=== PATIENT | female | born 1940 | race Asian ===

== ENCOUNTER 2016-05-02 10:42 | Emergency (ER) | payer OTHER ==
[~2016-05-02] VITALS: Ht 154.9 cm; Wt 70.3 kg
--- NOTE | 2016-05-02 10:42 | NUR ---
Pt placed in bed 6 by EMS. Daughter at bedside.
[2016-05-02] MEDS ORDERED: NACL 0.9% 500 ML IV ONE (10:50)
--- NOTE | 2016-05-02 10:50 | NUR ---
75/F lefty from home for evaluation of a possible syncopal episode this morning. Daughter states "She was sitting down, and was complaining of shortness of breath and then she shaking and was unconcious. She was unconcious." The daughter states she has hx of Alzhemiers but at this time the patient is AOX4. Pt is micronesian speaking only but the daughter is at bedside for tranlsation. Pt denies pain. The patient states "I feel better now.' per the daughter translation. Pt placed into a gown, placed on statistical analyst, pulse oximetry and blood pressure monitoring. VSS at this time. Patient is awake and interacting appropriately. No visible signs of distress noted. Addendum: 05/02/16 at 1202 by [facility] Patient is Turkmen Mandarin speaking not Belarusian speaking.
[2016-05-02 10:57] VITALS: BP 121/76
--- NOTE | 2016-05-02 11:10 | NUR ---
Phleb at bedside for blood draw.
--- NOTE | 2016-05-02 11:47 | NUR ---
Pt back from CT. Daughter at bedside. VSS. No visible signs of distress noted.
--- NOTE | 2016-05-02 13:03 | NUR ---
Patient appears to be resting comfortably in bed. Vital Signs within normal limits. Respirations even and unlabored.
[2016-05-02 13:26] VITALS: BP 130/89
--- NOTE | 2016-05-02 13:28 | NUR ---
Chart checked and completed. The patient's care was reviewed and supervised by Yonatan Brar RN.
--- NOTE | 2016-05-02 13:28 | NUR ---
Patient discharged with v/s stable. Written and verbal after care instructions given and explained. Patient verbalized understanding. Ambulatory with steady gait. All questions addressed prior to discharge. Advised to follow up with PMD.
== END 2016-05-02 14:38 | disposition home or self-care (01) ==
LOC: MED 10:42
DX: R55 Syncope and collapse (principal); I10 Essential (primary) hypertension; R06.02 Shortness of breath; R32 Unspecified urinary incontinence; Z86.73 Personal history of transient ischemic attack (TIA), and cerebral infarction without residual deficits
CPT/HCPCS: 36415; 70450; 71010; 80053; 82553; 82948; 83880; 84484; 85025; 85379; 85610; 85730; 93005; 96360; 99285; J7030; Q0092

== ENCOUNTER 2016-12-30 10:48 | Inpatient (IN) | payer OTHER ==
[~2016-12-30] VITALS: Ht 157.5 cm; Wt 58.5 kg
[2016-12-30 10:53] VITALS: BP 131/93
--- NOTE | 2016-12-30 10:59 | NUR ---
Patient BIBA to be 4 at this time.
--- NOTE | 2016-12-30 10:59 | NUR ---
Patient being evaluated by physician at bedside.
--- NOTE | 2016-12-30 11:05 | NUR ---
PATIENT PRESENTS TO ED WITH brought in by ems s/p mechanical fall at the [facility] parking lot c/o right hip / right shoulder pain/ right knee pain---no ko , no abrasions or deformities noted----pain upon movement no shortening or rotation of any leg---; DENIES N/V/D; SKIN IS PINK/WARM/DRY; AAOX4; LUNGS CLEAR BL; HR EVEN AND REGULAR; PT DENIES ANY FEVER, CP, SOB, OR COUGH AT THIS TIME; PATIENT STATES PAIN OF 10/10 AT THIS TIME; VSS; PATIENT POSITIONED FOR COMFORT; HOB ELEVATED; BEDRAILS UP X2; BED DOWN. ER MD MADE AWARE OF PT STATUS.
[2016-12-30] MEDS ORDERED: fentaNYL 0.05 MG/ML VIAL IM ONE (11:15)
--- NOTE | 2016-12-30 11:25 | NUR ---
WASTED 25MCG FENTANYL
--- NOTE | 2016-12-30 11:27 | NUR ---
PT TAKEN OFF THE UNIT VIA [facility] FOR XRAY BY [facility]
--- NOTE | 2016-12-30 12:35 | NUR ---
PATIENT BACK FROM CT AT THIS TIME.
[2016-12-30 13:15] LABS: BASOPHILS # (AUTO) 0.1 K/uL (0.00-0.22); BASOPHILS % (AUTO) 1.2 % (0.0-2.0); EOSINOPHILS # (AUTO) 0.1 K/uL (0-0.4); HEMATOCRIT 37.3 % (36-48); HEMOGLOBIN 12.7 g/dL (12.0-16.0); LYMPHOCYTES # (AUTO) 1.5 K/uL (2.5-16.5); LYMPHOCYTES % (AUTO) 19.3 % (20.5-51.1); MEAN CORPUSCULAR HEMOGLOBIN 32 pg (27-31); MEAN CORPUSCULAR HGB CONC 34 g/dL (33-37); MEAN CORPUSCULAR VOLUME 95 fL (80-94); MONOCYTES # (AUTO) 0.3 K/uL (0.8-1.0); MONOCYTES % (AUTO) 4.5 % (1.7-9.3); NEUTROPHILS # (AUTO) 5.7 K/uL (1.8-7.7); PLATELET COUNT (AUTO) 264 K/uL (140-450); RED BLOOD CELL COUNT(AUTO) 3.94 MIL/uL (4.20-5.40); RED CELL DISTRIBUTION WIDTH 11.7 % (11.6-13.7); WHITE BLOOD COUNT (AUTO) 7.7 K/uL (4.8-10.8)
[2016-12-30 13:29] LABS: ANION GAP 9.6 (8-16); CARBON DIOXIDE 28.7 mmol/L (21-32); CHLORIDE 104 mmol/L (98-107); CREATININE 0.7 mg/dL (0.6-1.3); GLUCOSE 95 mg/dL (74-106); POTASSIUM 3.3 mmol/L (3.5-5.1); SODIUM SERUM 139 mmol/L (136-145); UREA NITROGEN, BLOOD 16 mg/dL (7-18)
[2016-12-30 13:31] LABS: PROTHROMBIN TIME 10.4 secs (10.8-13.4)
[2016-12-30] MEDS ORDERED: LORA-476 PO (13:34)
[2016-12-30] MEDS ORDERED: AMLO10TA PO (13:34)
[2016-12-30] MEDS ORDERED: ESCI10TA PO (13:34)
[2016-12-30] MEDS ORDERED: SIMV20TA1 PO (13:34)
[2016-12-30 13:36] LABS: ALBUMIN 3.6 g/dL (3.4-5.0); ASPARTATE AMINOTRANSFERASE 21 U/L (15-37); TOTAL BILIRUBIN 0.6 mg/dL (0.0-1.0)
[2016-12-30] MEDS ORDERED: ONDANSETRON 4 MG/2 ML VIAL IVP PRN (13:50)
[2016-12-30] MEDS ORDERED: MORPHINE SULFATE 2 MG/ML SYR IVP PRN (13:50)
[2016-12-30] MEDS ORDERED: ACETAMINOPHEN 325 MG TAB PO PRN (13:50)
--- NOTE | 2016-12-30 14:05 | NUR ---
RN UNAVAILABLE FOR REPORT AT THIS TIME
--- NOTE | 2016-12-30 14:19 | NUR ---
Patient will be admitted to care of DR TURCIOS. Admited to M/S. Will go to room 110B. Belongings list completed. Report to EVERT ISAAC.
--- NOTE | 2016-12-30 14:25 | NUR ---
PATIENT ARRIVED ON UNIT WITH 2 ER NURSES ON A GURNEY. PATIENT IS MANDARIN SPEAKING ONLY. AAOX3 WITH TIMES OF CONFUSION. IV ON LEFT AC #22G SALINE LOCK. PT HAS RIGHT HIP FRACTURE. TENDERNESS ON RIGHT SHOULDER AND ARM. SKIN INTACT. DAUGHTER AT BEDSIDE. DENIES PAIN AT THIS TIME. DAUGHTER BROUGHT FOOD FOR PATIENT TO EAT. VITAL SIGNS WITHIN NORMAL LIMITS. WILL CONTINUE WITH ADMISSION PROCESS.
[2016-12-30 15:00] VITALS: BP 147/91
[2016-12-30] MEDS ORDERED: POTASSIUM CHLORIDE 10 MEQ TABER PO SCH (16:00)
[2016-12-30] MEDS: NACL 0.9% 1,000 ML IV SCH (17:36)
--- NOTE | 2016-12-30 17:40 | NUR ---
NS ADMINISTERED PER ORDER AT 80 ML/HR. ADMINISTERED KDUR 40 MEQ FOR LOW K LEVEL. PATIENT TOLERATED WELL. WILL CONTINUE TO MONITOR.
--- NOTE | 2016-12-30 19:21 | NUR ---
ENDORSED PATIENT TO EP TECHNOLOGIST NURSE AT BEDSIDE FOR CONTINUITY OF CARE. DAUGHTER AT BEDSIDE. PT IN STABLE CONDITION.
--- NOTE | 2016-12-30 19:30 | NUR ---
RECEIVED PT FROM AM SHIFT. RESIDENT IS ALERT ORIENTED X3, PT IS AWAKE AND START EATING DINNER WITH HELP FROM HER DAUGHTER. PT MANDARIN SPEAKING. IV ON L AC NO 22 GAUGE WITH IV FLUID NS AT 80 CC/HR RUNNING WELL. NO C/O PAIN OR DISCOMFORT AT THIS TIME.
--- NOTE | 2016-12-30 20:00 | NUR ---
DR. FELIZ,ANESTHESIOLOGIST CALLED AND INFORMED ABOUT PT SURGERY TOMORROW AFTERNOON. WITH ORDER TO HAVE ECHO TONIGHT.
--- NOTE | 2016-12-30 20:15 | NUR ---
PAGED DR. TURCIOS ,DR GÓMEZ DYE WEIGHER . CALLED BACK AND MADE AWARE OF THE NEED TO HAVE A PROJECT MANAGEMENT SPECIALIST TO READ THE ECHOCARDIOGRAM. WITH ORDER FOR DR. RENEE TO READ.
--- NOTE | 2016-12-30 20:35 | NUR ---
DR. BORJAS WAS PAGED. AWARE OF THE SURGERY TOMORROW. WITH ORDER TO HOLD THE LOVENOX AND TO GET CONSENT FOR RIGHT HIP PINNING. SURGERY WILL BE BETWEEN 12PM -1 PM.
[2016-12-30 21:21] VITALS: BP 151/95
--- NOTE | 2016-12-30 21:40 | NUR ---
PAGED DR. GÓMEZ, CALLED BACK WITH ORDER . OK TO INSERT MC CATHETER IN.
--- NOTE | 2016-12-30 22:00 | NUR ---
PT IS SLEEPING AT THIS TIME AFTER PAIN MED WAS GIVEN. WILL CONTINUE TO MONITOR.
--- NOTE | 2016-12-30 23:10 | NUR ---
FELL CUTTER TO DO ECHOCARDIOGRAM HER. USED THE BLUE PHONE TO TRANSLATE . SELECTOR PACKER KEVON ID#[id number] /PT UNDERSTOOD THE TEST FOR ECHO AND CONSENTED ON DOING THIS BUT WHEN TIME TO EXPLAIN ABOUT THE MC CATHETER INSERTION , PT REFUSED TO LISTEN ANYMORE.
[2016-12-30 23:30] VITALS: BP 152/101
--- NOTE | 2016-12-30 23:53 | NUR ---
ECHO COMPLETE. NOTIFIED NURSE TO PAGE DR. RENEE ON STAT READING FOR PRE-OP. CRITICAL FINDING SEEN ON ECHO. CANNOT GIVE PRELIMINARY REPORT.
--- NOTE | 2016-12-31 00:10 | NUR ---
PT START NPO FOR PRE SURGERY.
--- NOTE | 2016-12-31 00:30 | NUR ---
PT STILL REFUSED TO HAVE THE MC CATHETER TO BE INSERTED. WILL TRY LATER AGAIN.
--- NOTE | 2016-12-31 01:03 | NUR ---
PAGED DR. RENEE FOR THE STAT ECHO THAT WAS DONE AND THE CONCERN FOR POSS CRITICAL RESULT PER TELEMEDICINE PHYSICIAN BIENVENIDO. WILL WAIT FOR CALL BACK.
--- NOTE | 2016-12-31 01:06 | NUR ---
DR. RENEE CALLED BACK AND MADE AWARE OF THE STAT ECHO THAT WAS DONE FOR PRE OP , HE SAID HE WILL COME EARLY IN THE MORNING TO HAVE IT READ.
[2016-12-31] MEDS: NACL 0.9% 1,000 ML IV SCH ×3 (02:20→16:30)
--- NOTE | 2016-12-31 03:00 | NUR ---
MADE ROUNDS. SLEEPING WELL. NO S/S OF ANY DISCOMFORT NOR PAIN NOTED.
[2016-12-31 05:24] LABS: BASOPHILS # (AUTO) 0.1 K/uL (0.00-0.22); BASOPHILS % (AUTO) 1.6 % (0.0-2.0); EOSINOPHILS # (AUTO) 0.1 K/uL (0-0.4); EOSINOPHILS % (AUTO) 1.5 % (0.0-4.0); HEMATOCRIT 35.7 % (36-48); HEMOGLOBIN 12.2 g/dL (12.0-16.0); LYMPHOCYTES # (AUTO) 1.3 K/uL (2.5-16.5); LYMPHOCYTES % (AUTO) 17.8 % (20.5-51.1); MEAN CORPUSCULAR HEMOGLOBIN 32 pg (27-31); MEAN CORPUSCULAR HGB CONC 34 g/dL (33-37); MEAN CORPUSCULAR VOLUME 94 fL (80-94); MONOCYTES # (AUTO) 0.6 K/uL (0.8-1.0); MONOCYTES % (AUTO) 8.8 % (1.7-9.3); NEUTROPHILS # (AUTO) 5.1 K/uL (1.8-7.7); NEUTROPHILS % (AUTO) 70.3 % (42.2-75.2); PLATELET COUNT (AUTO) 246 K/uL (140-450); RED BLOOD CELL COUNT(AUTO) 3.79 MIL/uL (4.20-5.40); RED CELL DISTRIBUTION WIDTH 11.9 % (11.6-13.7); WHITE BLOOD COUNT (AUTO) 7.2 K/uL (4.8-10.8)
[2016-12-31 05:34] LABS: ANION GAP 10.3 (8-16); CARBON DIOXIDE 24.1 mmol/L (21-32); CHLORIDE 107 mmol/L (98-107); CREATININE 0.7 mg/dL (0.6-1.3); GLUCOSE 106 mg/dL (74-106); POTASSIUM 3.4 mmol/L (3.5-5.1); SODIUM SERUM 138 mmol/L (136-145); UREA NITROGEN, BLOOD 11 mg/dL (7-18)
--- NOTE | 2016-12-31 06:30 | NUR ---
CXR DONE AT BEDSIDE.
--- NOTE | 2016-12-31 07:10 | NUR ---
RECEIVED PT REPORT AT BEDSIDE. NO S/S OF DISTRESS NOTED. PT DENIES PAIN AT THIS TIME. IV NOTED ON THE LEFT ARM, NO INFILTRATION OR SWELLING. BED LOWERED, HOB ELEVATED TO 30 DEGREE. CALL LIGHT IS WITHIN REACH.
--- NOTE | 2016-12-31 07:25 | NUR ---
EKG ALSO DONE THIS AM AT BEDSIDE.
--- NOTE | 2016-12-31 07:30 | NUR ---
ABLE TO INSERT MC CATHETER ORDERED AFTER EXPLAINED TO PT BY EVERT MATHIS ORIENTEE . TOLERATED PROCEDURE WELL.
--- NOTE | 2016-12-31 07:35 | NUR ---
KEPT NPO, ENDORSED PT IN STABLE CONDITION AND TO HOLD LOVENOX TO AM NURSE.
--- NOTE | 2016-12-31 08:08 | NUR ---
PATIENT HAS BEEN SCREENED AND CATEGORIZED MODERATE NUTRITION RISK. PATIENT WILL BE SEEN WITHIN 3-5 DAYS OF ADMISSION. 01/02/17-01/04/[address]
--- NOTE | 2016-12-31 08:30 | NUR ---
PT C/O URINATING SENSATION. MC CATH IS ALREADY IN PLACE. URINE IS CLEAR YELLOW. EDUCATED PT NOT TO GET OUT OF BED OR USE THE RESTROOM. PT VERBALIZED UNDERSTANDING. BED ALARM ON.
[2016-12-31] MEDS ORDERED: ENOXAPARIN 40 MG/0.4 ML SYR SUBQ SCH (09:00)
[2016-12-31 09:01] VITALS: BP 157/103
[2016-12-31] MEDS ORDERED: LORazepam 1 MG TAB PO PRN (09:20)
[2016-12-31] MEDS: LORazepam 2 MG/ML VIAL IVP PRN ×3 (09:59→22:46)
[2016-12-31] MEDS ORDERED: amLODIPine 5 MG TAB PO SCH (10:00)
[2016-12-31] MEDS ORDERED: ESCITALOPRAM 20 MG TAB PO SCH (10:00)
[2016-12-31] MEDS: hydrALAZINE 20 MG/ML VIAL IVP PRN ×2 (10:06→16:15)
[2016-12-31] MEDS ORDERED: HALOPERIDOL IM 5 MG/ML VIAL IM PRN (10:40)
--- NOTE | 2016-12-31 10:40 | NUR ---
PT AGITATED, TRYING TO PULL OUT THE MC CATH AND IV LINE. PT IS A FALL RISK WITH HIP FX. PT TRIES TO GET OUT OF BED. ATIVAN WAS GIVEN. PT STILL RESTLESS, SHOUTING, AND HITTING WHEN CALMED DOWN BY STAFF. NON-BEHAVIORAL RESTRAINTS APPLIED TO BILATERAL WRISTS. ORDER OBTAINED. WILL CONTINUE TO MONITOR.
--- NOTE | 2016-12-31 11:33 | NUR ---
FAXED INITIAL REVIEW TO [facility] [phone] PHONE SAULO [phone] SPOKE WITH SAULO FROM [facility]. IF PATIENT NEEDS SNF, TRY [facility] OR [facility].
--- NOTE | 2016-12-31 11:54 | NUR ---
SENT INQUIRY TO [facility]. PER OTILIO AT 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
[2016-12-31] MEDS ORDERED: BACITRACIN 50000 UNITS/1 VIAL ONE (12:54)
--- NOTE | 2016-12-31 13:07 | NUR ---
PATIENT LEFT THE UNIT FOR SURGERY
[2016-12-31] MEDS ORDERED: SEVOFLURANE 250 ML BTL INH ONE (13:20)
[2016-12-31] MEDS ORDERED: PROPOFOL 200 MG/20 ML VIAL IV ONE (13:20)
--- NOTE | 2016-12-31 13:30 | NUR ---
OTILIO FROM [facility] CALL AND SAID THEY CAN ACCEPT THE PATIENT UPON DISCHARG.
[2016-12-31] MEDS ORDERED: MIDAZOLAM 2 MG/2 ML VIAL ONE (13:42)
[2016-12-31] MEDS ORDERED: fentaNYL 0.05 MG/ML VIAL ONE (13:42)
[2016-12-31] MEDS ORDERED: MEPERIDINE 50 MG/ML SYR ONE (13:42)
[2016-12-31] MEDS ORDERED: ceFAZolin 1,000 MG VIAL ONE ×2 (14:00→14:44)
[2016-12-31] MEDS ORDERED: ONDANSETRON 4 MG/2 ML VIAL IVP PRN (14:10)
[2016-12-31] MEDS ORDERED: MEPERIDINE 25 MG/ML SYR IVP PRN (14:10)
[2016-12-31] MEDS ORDERED: diphenhydrAMINE 50 MG/ML VIAL IVP PRN (14:10)
[2016-12-31] MEDS ORDERED: HYDROmorphone 1 MG/ML AMP IVP PRN (14:10)
[2016-12-31] MEDS ORDERED: BUPIVACAINE-MPF 0.5% 30 ML VIAL INJ ONE (14:29)
--- NOTE | 2016-12-31 15:00 | NUR ---
SCHEDULED ANCEF NOT ADMINISTERED. PATIENT RECEIVED DOSE IN OPERATING ROOM
--- NOTE | 2016-12-31 15:30 | NUR ---
PT RETURNED TO THE UNIT, S/P ORIF OF THE RIGHT HIP. PT IS DROWSY BUT RESPONSIVE. DRESSING NOTED ON THE RIGHT HIP. DRESSING IS CLEAN, DRY AND INTACT. TEMP 97.4, BP 156/109, HR 74, O2 SAT 93% ON RM AIR.
--- NOTE | 2016-12-31 15:58 | NUR ---
I CALLED THE DAUGHTER AND INFORMED HER THAT HER MOTHER HAS BEEN ACCEPTED AT [facility].
[2016-12-31 16:10] VITALS: BP 154/109
--- NOTE | 2016-12-31 17:00 | NUR ---
PT WAS AGITATED AND C/O OF URINATING SENSATION. EXPLAINED TO PT ABOUT MC CATH. BLADDER SCAN WAS DONE, 0 ML OF URINE RESIDUAL NOTED. MC CATH HAS GOOD OUTPUT, DRAINING CLEAR ORANGE URINE.
--- NOTE | 2016-12-31 19:15 | NUR ---
PT IS OFF RESTRAINS. PT IS CALMLY SLEEPING. RR IS 20.
--- NOTE | 2016-12-31 19:30 | NUR ---
ENDORSED PT TO THE OPTICAL LENS MANUFACTURING TECH. PT IS ASLEEP, SHOWS NO S/S OF DISTRESS.
--- NOTE | 2016-12-31 19:31 | NUR ---
RECEIVED REPORT FROM AM NURSE. PT RESTING IN BED, AOX2, SLEEPING COMFORTABLY BUT AROUSABLE TO NAME, NO S/S OF ACUTE DISTRESS. SOFT WRIST RESTRAINTS OFF AT THIS TIME, WILL MONITOR PT. MC CATH IN PLACE, DRAINING CLEAR KARON URINE. TRAPEZE NOT SET UP YET, WILL FOLLOW UP. DISCUSSED AND REVIEWED PLAN OF CARE WITH PT, WILL CONTINUE TO REINFORCE. BOTH IV ACCESS ASYMPTOMATIC, PATENT AND INTACT. LEFT AC IV ACCESS SALINE LOCKED, RIGHT HAND IV ACCESS, IVF INFUSING WELL. ALL NEEDS MET. SAFETY MEASURES ENSURED. CALL LIGHT WITHIN REACH. WILL CONTINUE TO MONITOR.
[2016-12-31 20:00] VITALS: BP 149/99
--- NOTE | 2016-12-31 20:50 | NUR ---
ADMINISTERED DUE MEDS WITH EDUCATION. WILL CONTINUE TO REINFORCE TEACHING. ALL NEEDS MET. IVPB INFUSING WELL. SAFETY MEASURES ENSURED. CALL LIGHT WITHIN REACH. WILL CONTINUE TO MONITOR.
--- NOTE | 2016-12-31 22:00 | NUR ---
HEARD BED ALARM FROM [facility], CHECKED ON PT. PT IS RESTLESS, TRYING TO GET UP OUT OF BED. PT HELPED BACK TO BED, CALLED CONTACT CENTER REP TO BEDSIDE TO STAY WITH PT AT THIS TIME. WILL MONITOR PT.
--- NOTE | 2016-12-31 22:17 | NUR ---
NOTIFIED BY TESTER OPERATOR HELPER THAT PT IS RESTLESS AND AGITATED, PT IS YELLING, TRYING TO REMOVE PT'S MC CATH AND IV CATH. PT IS UNCOOPERATIVE DESPITE TESTER OPERATOR HELPER AT BEDSIDE AND EDUCATION. SOFT WRIST RESTRAINTS ENSURED AT THIS TIME, WILL CONTINUE TO MONITOR PT. ALL NEEDS MET. IVF INFUSING WELL. SAFETY MEASURES ENSURED. CALL LIGHT WITHIN REACH. WILL CONTINUE TO MONITOR.
--- NOTE | 2016-12-31 22:46 | NUR ---
PT STILL RESTLESS AND AGITATED, TRYING TO PULL MC CATH, DESPITE EDUCATION AND PRODUCTION CONTROL CLERK AT BEDSIDE. ADMINISTERED ATIVAN IVP PRN ORDERED WITH EDUCATION. ALL NEEDS MET. IVF INFUSING WELL. SAFETY MEASURES ENSURED. CALL LIGHT WITHIN REACH. WILL CONTINUE TO MONITOR.
[2017-01-01] VITALS: BP 140/95
[2017-01-01] MEDS: NACL 0.9% 1,000 ML IV SCH ×4 (00:06→22:10)
--- NOTE | 2017-01-01 00:10 | NUR ---
PT SLEEPING COMFORTABLY, NO S/S OF ACUTE DISTRESS. SOFT WRIST RESTRAINTS REMOVED AT THIS TIME. ALL NEEDS MET. IVF INFUSING WELL. SAFETY MEASURES ENSURED. CALL LIGHT WITHIN REACH. WILL CONTINUE TO MONITOR.
--- NOTE | 2017-01-01 03:45 | NUR ---
CHECKED ON PT, NOTED PT IV CATH AT BEDSIDE, IV CANNULA INTACT. PT IS INCREASINGLY BECOMING RESTLESS AND AGITATED, PT REORIENTED, WILL CONTINUE TO REINFORCE. PT PUT BACK ON SOFT WRIST RESTRAINTS. USED BUSHER HELPER PHONE TO TALK TO PT. PT IS AOX2, CONFUSED AT THIS TIME, STATING THAT "SHE NEEDS TO COOK," AND INSISTING THAT SHE IS "IN [facility], IN MY HOME." ALL NEEDS MET. SAFETY MEASURES ENSURED. CALL LIGHT WITHIN REACH. WILL CONTINUE TO MONITOR.
[2017-01-01] MEDS: LORazepam 2 MG/ML VIAL IVP PRN ×2 (04:21→13:40)
--- NOTE | 2017-01-01 04:25 | NUR ---
HEARD BED ALARM FROM [employer], PT IS SITTING AT BEDSIDE, TRYING TO GET OUT OF BED, SOFT WRIST RESTRAINTS NOTED LOOSE. ASSISTED PT BACK TO BED. NOTED THAT PT'S DRESSING TO RIGHT HIP IS LOOSE, MINIMAL DRY RED DRAINAGE NOTED. DRESSING CHANGED, INCISION SITE WITH 10 ANNE MARIE, APPROXIMATED WELL, PINK SURROUNDING TISSUE, BRUISING NOTED. INCISION SITE CLEANSED WITH NS AND GAUZE, COVERED WITH ADAPTIC, 4X4 GAUZE AND WRAPPED WITH KERLIX. ALL NEEDS MET. SOFT RESTRAINTS ENSURED. CALL LIGHT WITHIN REACH. WILL CONTINUE TO MONITOR. Addendum: 01/01/17 at 0548 by Jai Corley RN NEW IV TO RIGHT AC 22G INSERTED BY CHARGE NURSE. PT ABLE TO TOLERATE WELL. IVF INFUSING WELL
--- NOTE | 2017-01-01 04:39 | NUR ---
PT STILL RESTLESS AND AGITATED DESPITE MONITORING AND EDUCATION, ADMINISTERED ATIVAN IVP PRN ORDERED WITH EDUCATION. WILL REINFORCE TEACHING. ADMINISTERED DUE MED ANCEF IVPB WITH EDUCATION. PT IN BED, IVPB INFUSING WELL, SOFT RESTRAINTS MAINTAINED, SAFETY MEASURES ENSURED. CALL LIGHT WITHIN REACH. WILL CONTINUE TO MONITOR.
--- NOTE | 2017-01-01 05:10 | NUR ---
PT SLEEPING COMFORATBLY. NO S/S OF ACUTE DISTRESS. ALL NEEDS MET. IVF INFUSING WELL. SAFETY MEASURES ENSURED. CALL LIGHT WITHIN REACH. WILL CONTINUE TO MONITOR.
[2017-01-01] MEDS: SIMVASTATIN 20 MG TAB PO SCH (06:30)
--- NOTE | 2017-01-01 07:06 | NUR ---
PT REFUSED DUE MED SIMVASTATIN PO DESPITE EDUCATION, SHAKING HEAD NO AND REFUSING TO TAKE MED. WILL ENDORSE TO AM NURSE.
--- NOTE | 2017-01-01 07:07 | NUR ---
RECEIVED PT FROM OFFICE MACHINE EMBOSSOGRAPH OPERATOR NURSE AT BEDSIDE. PT IS A&OX2. PT HAS IV ON R AC 22 G RUNNING NS@100. PT HAS SOFT WRIST RESTRAINTS ON, TRYING TO REMOVE THE MC CATH AT THIS TIME. MC CATH IS DRAINING DARK YELLOW URINE. REORIENTED PT. RELEASED THE RESTRAINTS TO CHECK THE SKIN. SKIN INTACT. PT IS S/P R HIP SURGERY, DSG INTACT AND CLEAN AND DRY. BED ALARM ON. CALL LIGHT WITHIN REACH. WILL CONTINUE TO MONITOR.
[2017-01-01 08:00] VITALS: BP 168/117
[2017-01-01] MEDS ORDERED: INFLUENZA VIRUS VACCINE QUAD 0.5 ML SYR IMVAC SCH (08:00)
[2017-01-01] MEDS ORDERED: PNEUMOCOCCAL VACCINE 23 MCG/0.5 ML VIAL IMVAC SCH (08:00)
--- NOTE | 2017-01-01 08:50 | NUR ---
SPOKE TO DR. TURCIOS REGARDING PT'S RESTRAINT ORDER NEEDING RENEWAL. STATED OKAY TO RENEW.
[2017-01-01] MEDS: ESCITALOPRAM 20 MG TAB PO SCH (08:58)
[2017-01-01] MEDS: amLODIPine 5 MG TAB PO SCH (08:58)
--- NOTE | 2017-01-01 09:00 | NUR ---
DAUGHTER FED PT HER BREAKFAST. TOLERATED WELL. CALL LIGHT WITHIN REACH. WILL CONTINUE TO MONITOR.
--- NOTE | 2017-01-01 11:45 | NUR ---
FED PT LUNCH. PT TOLERATED WELL. CALL LIGHT WITHIN REACH. WILL CONTINUE TO MONITOR.
[2017-01-01] MEDS: HYDROcodone/APAP 5/325 MG 1 TAB TAB PO PRN ×2 (12:07→23:12)
[2017-01-01 12:15] LABS: BASOPHILS # (AUTO) 0.1 K/uL (0.00-0.22); BASOPHILS % (AUTO) 1.3 % (0.0-2.0); EOSINOPHILS # (AUTO) 0.1 K/uL (0-0.4); EOSINOPHILS % (AUTO) 0.9 % (0.0-4.0); HEMATOCRIT 34.6 % (36-48); HEMOGLOBIN 11.5 g/dL (12.0-16.0); LYMPHOCYTES # (AUTO) 1.2 K/uL (2.5-16.5); LYMPHOCYTES % (AUTO) 14.1 % (20.5-51.1); MEAN CORPUSCULAR HEMOGLOBIN 31 pg (27-31); MEAN CORPUSCULAR HGB CONC 33 g/dL (33-37); MEAN CORPUSCULAR VOLUME 94 fL (80-94); MONOCYTES # (AUTO) 0.9 K/uL (0.8-1.0); MONOCYTES % (AUTO) 9.9 % (1.7-9.3); NEUTROPHILS # (AUTO) 6.3 K/uL (1.8-7.7); NEUTROPHILS % (AUTO) 73.8 % (42.2-75.2); PLATELET COUNT (AUTO) 234 K/uL (140-450); RED BLOOD CELL COUNT(AUTO) 3.67 MIL/uL (4.20-5.40); RED CELL DISTRIBUTION WIDTH 11.9 % (11.6-13.7); WHITE BLOOD COUNT (AUTO) 8.6 K/uL (4.8-10.8)
--- NOTE | 2017-01-01 12:30 | NUR ---
PT TRIED TO GET UP AND GET OUT OF HER SOFT WRIST RESTRAINTS. REDIRECTED PT BACK TO BED. CALL LIGHT WITHIN REACH. WILL CONTINUE TO MONITOR.
[2017-01-01 13:05] LABS: ANION GAP 11.9 (8-16); CARBON DIOXIDE 24.2 mmol/L (21-32); CHLORIDE 103 mmol/L (98-107); CREATININE 0.6 mg/dL (0.6-1.3); GLUCOSE 111 mg/dL (74-106); POTASSIUM 3.1 mmol/L (3.5-5.1); SODIUM SERUM 136 mmol/L (136-145); UREA NITROGEN, BLOOD 9 mg/dL (7-18)
--- NOTE | 2017-01-01 14:49 | NUR ---
SPOKE TO DR. TURCIOS REGARDING PT'S POTASSIUM 3.1. GAVE ORDER OF PO 40 MEQ OF POTASSIUM ONE DOSE. CALL LIGHT WITHIN REACH. WILL CONTINUE TO MONITOR.
[2017-01-01] MEDS ORDERED: POTASSIUM CHLORIDE 10 MEQ TABER PO SCH (14:57)
[2017-01-01 16:00] VITALS: BP 120/83
--- NOTE | 2017-01-01 16:00 | NUR ---
VS STABLE. CALL LIGHT WITHIN REACH. WILL CONTINUE TO MONITOR.
--- NOTE | 2017-01-01 17:45 | NUR ---
PT FINISHED 25% OF DINNER. STATED SHE IS FULL AND WILL EAT LATER. TOLERATED WELL. CALL LIGHT WITHIN REACH. WILL CONTINUE TO MONITOR.
--- NOTE | 2017-01-01 19:03 | NUR ---
ENDORSED CARE OF PT TO MAREK RN AT BEDSIDE. PT IN STABLE CONDITION.
--- NOTE | 2017-01-01 19:10 | NUR ---
RECEIVED REPORT FROM AM NURSE. PT RESTING IN BED, AOX2, SLEEPING COMFORTABLY BUT AROUSABLE TO NAME, NO S/S OF ACUTE DISTRESS. SOFT WRIST RESTRAINTS OFF AT THIS TIME, WILL MONITOR PT. MC CATH IN PLACE. TRAPEZE IN PLACE. SCDs ENSURED. DRESSING TO RIGHT HIP CLEAN DRY AND INTACT. DISCUSSED AND REVIEWED PLAN OF CARE WITH PT, WILL CONTINUE TO REINFORCE. IV ACCESS ASYMPTOMATIC, PATENT AND INTACT. IVF INFUSING WELL. ALL NEEDS MET. SAFETY MEASURES ENSURED. CALL LIGHT WITHIN REACH. WILL CONTINUE TO MONITOR.
[2017-01-01 20:00] VITALS: BP 162/112
[2017-01-01] MEDS: hydrALAZINE 20 MG/ML VIAL IVP PRN (20:52)
--- NOTE | 2017-01-01 20:55 | NUR ---
PT SLEEPING COMFORTABLY, AROUSABLE TO NAME. ADMINISTERED DUE MED HEPARIN SUBQ WITH EDUCATION, WILL CONTINUE WITH CONSTANT REINFORCEMENT. BP 162/112, HR 96, ADMINISTERED APRESOLINE IVP PRN ORDERED, WILL MONITOR PT AND REASSESS. ALL NEEDS MET. IVF INFUSING WELL. SAFETY MEASURES ENSURED. CALL LIGHT WITHIN REACH. WILL CONTINUE TO MONITOR.
--- NOTE | 2017-01-01 23:15 | NUR ---
PT C/O PAIN. SEE PAIN ASSESSMENT. ADMINISTERED NORCO PO PRN ORDERED. ASSISTED PT TO EAT SANDWICH, DAILY CARE PERFORMED, PT ABLE TO TOLERATE WELL. PT IS NOW SLEEPING COMFORTABLY, SOFT WRIST RESTRAINTS REMOVED AT TIME, WILL CONTINUE TO MONITOR PT. ALL NEEDS MET. IVF INFUSING WELL. SAFETY MEASURES ENSURED. CALL LIGHT WITHIN REACH. WILL CONTINUE TO MONITOR.
[2017-01-02] VITALS: BP 136/91
--- NOTE | 2017-01-02 02:00 | NUR ---
PT SLEEPING COMFORTABLY, NO S/S OF ACUTE DISTRESS. ALL NEEDS MET. IVF INFUSING WELL. SAFETY MEASURES ENSURED. CALL LIGHT WITHIN REACH. WILL CONTINUE TO MONITOR.
--- NOTE | 2017-01-02 05:08 | NUR ---
PT SLEEPING COMFORTABLY, NO S/S OF ACUTE DISTRESS. CHANGED PT BED LINENS AT THIS TIME WITH RN ORTHOPAEDICS. PT TOLERATED WELL. ALL NEEDS MET. IVF INFUSING WELL. SAFETY MEASURES ENSURED. CALL LIGHT WITHIN REACH. WILL CONTINUE TO MONITOR.
[2017-01-02] MEDS: NACL 0.9% 1,000 ML IV SCH ×2 (06:06→09:19)
[2017-01-02 06:15] LABS: BASOPHILS % (AUTO) 0.6 % (0.0-2.0); EOSINOPHILS # (AUTO) 0.1 K/uL (0-0.4); EOSINOPHILS % (AUTO) 1.6 % (0.0-4.0); HEMATOCRIT 33.2 % (36-48); HEMOGLOBIN 11.3 g/dL (12.0-16.0); LYMPHOCYTES # (AUTO) 1.4 K/uL (2.5-16.5); LYMPHOCYTES % (AUTO) 20.2 % (20.5-51.1); MEAN CORPUSCULAR HEMOGLOBIN 32 pg (27-31); MEAN CORPUSCULAR HGB CONC 34 g/dL (33-37); MEAN CORPUSCULAR VOLUME 94 fL (80-94); MONOCYTES # (AUTO) 0.8 K/uL (0.8-1.0); MONOCYTES % (AUTO) 10.8 % (1.7-9.3); NEUTROPHILS # (AUTO) 4.8 K/uL (1.8-7.7); NEUTROPHILS % (AUTO) 66.8 % (42.2-75.2); PLATELET COUNT (AUTO) 247 K/uL (140-450); RED BLOOD CELL COUNT(AUTO) 3.52 MIL/uL (4.20-5.40); RED CELL DISTRIBUTION WIDTH 11.8 % (11.6-13.7); WHITE BLOOD COUNT (AUTO) 7.1 K/uL (4.8-10.8)
[2017-01-02] MEDS: SIMVASTATIN 20 MG TAB PO SCH (06:19)
[2017-01-02 06:49] LABS: CARBON DIOXIDE 24.2 mmol/L (21-32); CHLORIDE 105 mmol/L (98-107); CREATININE 0.6 mg/dL (0.6-1.3); GLUCOSE 101 mg/dL (74-106); POTASSIUM 3.2 mmol/L (3.5-5.1); SODIUM SERUM 137 mmol/L (136-145); UREA NITROGEN, BLOOD 9 mg/dL (7-18)
--- NOTE | 2017-01-02 07:15 | NUR ---
RECEIVED BEDSIDE REPORT FROM NIGHT NURSE, PT RESTING, NO DISTRESS NOTED, IV TO THE R AC 22 G RUNNING NS @ 100 ML/HR, INFUSING WELL, INCISION SITE ON THE R HIP, DRESSING CLEAN DRY AND INTACT, MC CATHETER IN PLACE DRAINING YELLOW CLEAR URINE. CALL LIGHT WITHIN REACH, WILL CONTINUE TO MONITOR.
--- NOTE | 2017-01-02 07:15 | NUR ---
ENDORSED PLAN OF CARE TO AM NURSE. CONDITION STABLE.
[2017-01-02 08:00] VITALS: BP 133/95
[2017-01-02] MEDS: ESCITALOPRAM 20 MG TAB PO SCH (08:11)
[2017-01-02] MEDS: amLODIPine 5 MG TAB PO SCH (08:12)
--- NOTE | 2017-01-02 09:15 | NUR ---
PT RESTING, NO DISTRESS NOTED, DAUGHTER BY BEDSIDE, CALL LIGHT WITHIN REACH, WILL CONTINUE TO MONITOR.
--- NOTE | 2017-01-02 09:30 | NUR ---
INFORMED DR TURCIOS OF PT K LEVEL OF 3.2, ORDERED 40MEQ KCL PO. WILL CARRY OUT THE ORDER.
[2017-01-02] MEDS ORDERED: POTASSIUM CHLORIDE 10 MEQ TABER PO SCH (09:55)
[2017-01-02] MEDS ORDERED: ACET-5629 PO (10:13)
[2017-01-02] MEDS ORDERED: ONDA4TAB PO (10:14)
[2017-01-02] MEDS: HYDROcodone/APAP 5/325 MG 1 TAB TAB PO PRN (10:38)
[2017-01-02 10:44] VITALS: BP 133/95
--- NOTE | 2017-01-02 11:00 | NUR ---
DISCONTINUED MC. PT TOLERATED WELL. EDUCATED PT TO USE CALL LIGHT TO CALL WHEN SHE NEEDS TO USE BATHROOM. CALL LIGHT WITHIN REACH. WILL CONTINUE TO MONITOR.
--- NOTE | 2017-01-02 11:09 | NUR ---
PT VOIDED IN A BED COLE. TOLERATED WELL. CALL LIGHT WITHIN REACH. WILL CONTINUE TO MONITOR.
--- NOTE | 2017-01-02 11:50 | NUR ---
Social Service Note: Per Anshu from [facility] , patient can be transfer to their facility today, room 43A, charge nurse Elizabeth badillo
--- NOTE | 2017-01-02 12:00 | NUR ---
PT VOIDED IN BED COLE AGAIN. TOLERATED WELL. CALL LIGHT WITHIN REACH. WILL CONTINUE TO MONITOR.
[2017-01-02] MEDS ORDERED: INFLUENZA VIRUS VACCINE QUAD 0.5 ML SYR IMVAC SCH (13:00)
--- NOTE | 2017-01-02 13:10 | NUR ---
GAVE REPORT TO ABDIAZIZ LOYD AT [facility].
--- NOTE | 2017-01-02 14:17 | NUR ---
C/O OF PAIN ON RT HIP MEDICATED WITH TYLENOL 650MG PO
--- NOTE | 2017-01-02 15:29 | NUR ---
PT LEFT UNIT WITH EMR ON [facility], BELONGING WITH PT, PT STABLE, PT GOING TO [facility]. IV TAKEN OUT, CATH INTACT, WRISTBAND TAKEN OFF.
== END 2017-01-02 15:22 | DRG 309 ==
LOC: MED 10:48 → MTU 13:52
PROVIDERS: ADMIT Hospitalist; ATTEND Hospitalist
PROC: 0SH904Z Insertion of Internal Fixation Device into Right Hip Joint, Open Approach (ICD-10-PCS; principal; 2016-12-30)
DX: S72.011A Unspecified intracapsular fracture of right femur, initial encounter for closed fracture (principal); G30.9 Alzheimer's disease, unspecified; F02.80 Dementia in other diseases classified elsewhere, unspecified severity, without behavioral disturbance, psychotic disturbance, mood disturbance, and anxiety; I10 Essential (primary) hypertension; F41.9 Anxiety disorder, unspecified; S40.011A Contusion of right shoulder, initial encounter; W01.0XXA Fall on same level from slipping, tripping and stumbling without subsequent striking against object, initial encounter; M19.90 Unspecified osteoarthritis, unspecified site; F32.9 Major depressive disorder, single episode, unspecified; Y93.89 Activity, other specified; Y92.89 Other specified places as the place of occurrence of the external cause; Y99.8 Other external cause status; Z79.899 Other long term (current) drug therapy
CPT/HCPCS: 36415; 71010; 72192; 73030; 73502; 77003; 80048; 80053; 83735; 85025; 85610; 85730; 86886; 86900; 86901; 87081; 90658; 90732; 93005; 96372; 97110; 99285; C1713; J0360; J0690; J1644; J2060; J2175; J2250; J2270; J2704; J3010; J3490; J7030; J7060

== ENCOUNTER 2017-12-22 11:23 | Inpatient (IN) | payer OTHER ==
[~2017-12-22] VITALS: Ht 160 cm; Wt 77.1 kg
[~2017-12-22 11:23] MED LIST: ACET-5629 PO; AMLO10TA PO; ESCI10TA PO; LORA-476 PO; ONDA4TAB PO; SIMV20TA1 PO
--- NOTE | 2017-12-22 11:23 | NUR ---
PT BIBA ALS TO BED 4
[2017-12-22 11:40] VITALS: BP 174/95
--- NOTE | 2017-12-22 11:58 | NUR ---
XRAY AT BEDSIDE
--- NOTE | 2017-12-22 12:00 | NUR ---
77 YO F YOLANDA FROM [facility] W/ C/O HIGH BP & DIFFICULT TO BREATH. PER DAUGHTER REPORTED PT HAS HX OF HTN, DEPRESSION & ANXIETY. SKIN DIAPHORETIC. AAOX4, PT SPEAKS ONLY MANDARIN. PT W/O S/S OF ACUTE RESPIRATORY DISTRESS. SYMMETRICAL RISE AND FALL OF THE CHEST, LUNG SOUNDS BL CLEAR. HR 50/MINS AT THIS TIME.SPEAKING IN SENTENCES, RR EVEN AND UNLABORED . PERRLA INTACT. ABD SOFT, NON-TENDER. BOWEL SOUNDS ACTIVE X 4 QUADRANTS. Addendum: 12/22/17 at 1237 by MED1 PATIENT POSITIONED FOR COMFORT; HOB ELEVATED; BEDRAILS UP X2; BED DOWN. ER MADE AWARE OF PT STATUS.
[2017-12-22 12:09] LABS: HEMATOCRIT 41.3 % (36-48); MEAN CORPUSCULAR HEMOGLOBIN 32 pg (27-31); MEAN CORPUSCULAR HGB CONC 34 g/dL (33-37); MEAN CORPUSCULAR VOLUME 92.8 fL (80-94); PLATELET COUNT (AUTO) 257 K/uL (140-450); RED BLOOD CELL COUNT(AUTO) 4.46 MIL/uL (4.20-5.40); RED CELL DISTRIBUTION WIDTH 13.1 % (11.6-13.7)
[2017-12-22 12:10] LABS: BASOPHILS % (AUTO) 0.7 % (0.0-2.0); EOSINOPHILS # (AUTO) 0.1 K/uL (0-0.4); EOSINOPHILS % (AUTO) 1.2 % (0.0-4.0); LYMPHOCYTES # (AUTO) 1.6 K/uL (2.5-16.5); LYMPHOCYTES % (AUTO) 26.8 % (20.5-51.1); MONOCYTES # (AUTO) 0.6 K/uL (0.8-1.0); MONOCYTES % (AUTO) 9.5 % (1.7-9.3); NEUTROPHILS # (AUTO) 3.7 K/uL (1.8-7.7); NEUTROPHILS % (AUTO) 61.8 % (42.2-75.2)
[2017-12-22 12:15] LABS: PROTHROMBIN TIME 11.5 secs (10.8-13.4)
--- NOTE | 2017-12-22 12:19 | NUR ---
DR SAUNDERS EVALUATING AT BEDSIDE
[2017-12-22 12:24] LABS: CHLORIDE 102 mmol/L (98-107); POTASSIUM 3.7 mmol/L (3.5-5.1); SODIUM SERUM 137 mmol/L (136-145)
[2017-12-22 12:25] LABS: ANION GAP 12.4 (8-16); ASPARTATE AMINOTRANSFERASE 21 U/L (15-37); CARBON DIOXIDE 26.3 mmol/L (21-32); CREATININE 0.7 mg/dL (0.6-1.3); GLUCOSE 99 mg/dL (74-106); TOTAL BILIRUBIN 0.5 mg/dL (0.0-1.0); UREA NITROGEN, BLOOD 17 mg/dL (7-18)
[2017-12-22 12:26] LABS: ALBUMIN 3.8 g/dL (3.4-5.0)
--- NOTE | 2017-12-22 12:35 | NUR ---
Tih : PT'S DAUGHTER PHONE NO [phone]
[2017-12-22] MEDS ORDERED: cloNIDine 0.1 MG TAB PO ONE (12:45)
[2017-12-22] MEDS ORDERED: hydrALAZINE 20 MG/ML VIAL IVP PRN ×2 (12:45→13:40)
[2017-12-22] MEDS ORDERED: ASPIRIN 325 MG TAB PO ONE (12:45)
[2017-12-22] MEDS ORDERED: ASPIRIN 325 MG TAB ONE (12:52)
--- NOTE | 2017-12-22 13:12 | NUR ---
Patient appears to be resting comfortably in bed. bp from 185/138 drop to 146/93 , p 52/mins , Respirations even and unlabored.will continue to monitor.
[2017-12-22] MEDS ORDERED: MORPHINE SULFATE 2 MG/ML SYR IVP PRN (13:30)
[2017-12-22] MEDS ORDERED: ONDANSETRON 4 MG/2 ML VIAL IVP PRN (13:30)
[2017-12-22] MEDS ORDERED: ACETAMINOPHEN 325 MG TAB PO PRN (13:30)
[2017-12-22] MEDS ORDERED: LORazepam 1 MG TAB PO PRN (13:40)
--- NOTE | 2017-12-22 14:10 | NUR ---
ASSESSMENT DONE. [facility] CALLED, SUPERVISOR [employer] #[id number]. PATIENT MANDARIN SPEAKING ONLY. PATIENT CONFUSED BUT ANSWER ALL QUESTIONS. PATIENT REFUSED PNA AND FLU VACCINE BECAUSE WORRIED FINANCIALLY ABOUT COST OF VACCINES AND STAY OF HOSPITAL. RN EXPLAINED. PATIENT VERBALIZED UNDERSTANDING, WILL WAIT FOR DAUGHTER TO FURTHER EXPLAIN ABOUT VACCINES. Addendum: 12/22/17 at 1924 by Avtar Lee RN WRONG TIME, CORRECT TIME: 1610
--- NOTE | 2017-12-22 14:20 | NUR ---
PT ATE 50% OF FOOD.
--- NOTE | 2017-12-22 14:31 | NUR ---
PT TAKEN TO FLOOR BY EVERT RENTERIA AND MIHIR MOSS
[2017-12-22 14:35] VITALS: BP 103/66
--- NOTE | 2017-12-22 14:35 | NUR ---
Patient will be admitted to care of DR AMAYA. Admited to TELE. Will go to room 107B. Belongings list completed. Report to GILDA LOYD.
--- NOTE | 2017-12-22 14:35 | NUR ---
REPORT RECEIVED FROM MILLSTONE CLEANER AT BEDSIDE FOR CONTINUITY OF CARE. PATIENT CONFUSED, MANDARIN SPEAKING ONLY. ORIENTED PATIENT TO ROOM, CALL LIGHT, INFORMED HER ABOUT BED ALARM. WILL USE CYROCOM FOR ASSESSMENT. IV TO LEFT HAND 18 G, INTACT, ASYMPTOMATIC, AND PATENT, SALINE LOCKED. UPDATED BOARD. VS WNL. SAFETY PRECAUTION IN PLACE, CALL LIGHT WITHIN REACH, WILL CONTINUE TO MONITOR PATIENT.
[2017-12-22 14:54] LABS: CREATINE KINASE MB 1.2 ng/mL (0-3.6)
--- NOTE | 2017-12-22 15:25 | NUR ---
PATIENT RESTING IN BED, NO SIGNS OF DISTRESS OR SOB NOTED ON ROOM AIR. PATIENT DENIES CHEST PAIN AND ABDOMINAL PAIN. OFFERED PATIENT JUICE OR CRACKERS, PATIENT STATED THAT SHE IS NOT HUNGRY AT THE MOMENT. ALL NEEDS MET AT THE MOMENT. WILL CONTINUE TO MONITOR PATIENT.
--- NOTE | 2017-12-22 17:10 | NUR ---
PAGED DR. AMAYA TO ASK ABOUT PATIENT'S CODE STATUS. DR. AMAYA CALLED BACK AND STATED THAT WILL HAVE TO TALK TO PATIENT'S DAUGHTER TO DETERMINE THAT FACT. RN VERBALIZED UNDERSTANDING.
--- NOTE | 2017-12-22 17:25 | NUR ---
CALLED PATIENT'S DAUGHTER RAUL TAYLOR AT [phone]. INFORMED HER ABOUT PATIENT'S STATUS AND ASKED HER ABOUT CODE STATUS. SHE STATED THAT SHE DID NOT FULLY UNDERSTAND AND WILL COME BY AFTER WORK WHICH ENDS AT 1900 TO VISIT HER MOTHER AT 1999. RN VERBALIZED UNDERSTANDING.
--- NOTE | 2017-12-22 18:25 | NUR ---
PATIENT AGITATED. WANTS TO GO HOME. PATIENT STARTED TO TAKE OFF CLOTHING AND GET CHANGED BACK INTO HER OWN CLOTHING. OFFERED PATIENT ATIVAN TO CALM HER DOWN. SHE STATED THAT "I'M NOT NERVOUS" IN MANDARIN AND REFUSED MEDICATION. PATIENT REFUSED TELE BOX, KEPT ON TAKING IT OFF. PATIENT WAS WORRIED ABOUT HER "DAUGHTER NOT HAVING DINNER". INFORMED PATIENT THAT HER DAUGHTER WILL COME AFTER WORK AT 7 AND COME VISIT PATIENT AFTER 8.
--- NOTE | 2017-12-22 18:44 | NUR ---
PATIENT NOW BEING AGITATED AND MAD BECAUSE SHE CANNOT LEAVE THE ROOM. PATIENT FORCEFULLY WALKED OUT OF ROOM. WANTED TO SIT IN WAITING ROOM, INFORMED HER NO WAITING ROOM AVAILABLE. AFTER WALKING AROUND NURSES STATION, PATIENT WAS PERSUADED TO SIT NEAR NURSES STATION. PATIENT NOW CALM, DRESSED IN HER OWN CLOTHING. WAITING FOR DAUGHTER TO COME. CHANI PEARSON RN CALLED DAUGHTER AT [phone] AND LEFT MESSAGE ABOUT PATIENT'S CONDITION. WILL WAIT FOR HER TO CALL BACK OR COME TO VISIT.
[2017-12-22 18:46] LABS: APPEARANCE,URINE CLEAR (CLEAR); BILIRUBIN,URINE NEGATIVE (NEGATIVE); BLOOD, URINE TRACE-I (NEGATIVE); COLOR,URINE YELLOW (YELLOW); LEUKOCYTE ESTERASE ,URINE NEGATIVE (NEGATIVE); NITRITE, URINE NEGATIVE (NEGATIVE); PH,URINE 7.5 (5.0-9.0); UGLUCOSE NEGATIVE (NEGATIVE)
[2017-12-22 18:59] LABS: RBC,URINE 0-5 (RARE) /HPF (0-5); WBC,URINE 0-5 (RARE) /HPF (0-5)
--- NOTE | 2017-12-22 19:15 | NUR ---
REPORT GIVEN TO MOVE COORDINATOR NURSE AT BEDSIDE FOR CONTINUITY OF CARE. PATIENT STILL AGITATED. STATED THAT HER IV HURTS, AND WANTS IT OFF. PATIENT SITTING OUTSIDE NEAR NURSES STATION. PATIENT CRYING, YELLING WANTING IV OUT. BEGGED RN. ENDORSED TO NIGHT RN.
--- NOTE | 2017-12-22 19:16 | NUR ---
RECEIVED REPORT FROM DAYSHIFT NURSE AT BEDSIDE FOR CONTINUITY OF CARE. PT IS [place] SPEAKING ONLY. PT IS AAOX2. PT IS VERY AGITATED, OUTSIDE OF HER ROOM AND SHOUTING AND POINTING TO HER IV. IV L HAND 18G SALINE LOCK. PT HAS NO SOB NO S/S OF DISTRESS. ON TELE BUT REFUSES TO WEAR TELE MONITOR. PT IS AMBULATORY. WILL CONTINUE TO MONITOR.
--- NOTE | 2017-12-22 19:35 | NUR ---
PT SHOUTING AND AGITATED, SECURITY CALLED TO TAKE PT BACK TO HER ROOM.
--- NOTE | 2017-12-22 19:45 | NUR ---
PT LEFT FLOOR WITHOUT SIGNING AMA. WILL TALK TO DAUGHTER TO CALM HER DOWN.
--- NOTE | 2017-12-22 19:46 | NUR ---
BARRY GERBER FOR PT AGITATION.
--- NOTE | 2017-12-22 20:10 | NUR ---
ZABRINA OK TO AMA. AND TO LEAVE WITH DAUGHTER.
--- NOTE | 2017-12-22 20:15 | NUR ---
DAUGHTER SIGNED FOR MOTHER AMA.
--- NOTE | 2017-12-22 20:20 | NUR ---
PT OFF THE UNIT FLOOR.
[2017-12-23] MEDS ORDERED: amLODIPine 5 MG TAB PO SCH (09:00)
[2017-12-23] MEDS ORDERED: ESCITALOPRAM 20 MG TAB PO SCH (09:00)
[2017-12-23] MEDS ORDERED: ENOXAPARIN 30 MG/0.3 ML SYR SUBQ SCH (09:00)
[2017-12-23] MEDS ORDERED: ASPIRIN 81 MG TAB.CHEW PO SCH (09:00)
--- NOTE | 2017-12-23 14:36 | NUR ---
RETRO ER DR'S NOTE, H&P, LAB RESULTS AND LIST OF MEDS FAXED TO [facility] [phone] AND TO [facility] [phone].
[2017-12-23] MEDS ORDERED: SIMVASTATIN 20 MG TAB PO SCH (21:00)
== END 2017-12-22 20:10 | disposition left against medical advice (07) | DRG 203 ==
LOC: MED 11:23 → MERGE 11:23 → MTU 13:38
PROVIDERS: ADMIT Hospitalist; ATTEND Hospitalist
DX: R07.89 Other chest pain (principal); G30.9 Alzheimer's disease, unspecified; F02.80 Dementia in other diseases classified elsewhere, unspecified severity, without behavioral disturbance, psychotic disturbance, mood disturbance, and anxiety; E78.5 Hyperlipidemia, unspecified; I10 Essential (primary) hypertension; Z96.649 Presence of unspecified artificial hip joint; Z53.21 Procedure and treatment not carried out due to patient leaving prior to being seen by health care provider; Z79.899 Other long term (current) drug therapy
CPT/HCPCS: 36415; 71045; 80053; 81001; 82550; 82553; 83880; 84484; 85025; 85610; 85730; 87081; 87086; 93005; 96374; 99285; J0360; Q0092

== ENCOUNTER 2018-09-26 22:55 | Inpatient (IN) | payer OTHER ==
[~2018-09-26] VITALS: Ht 157.5 cm; Wt 78.0 kg
--- NOTE | 2018-09-26 22:58 | NUR ---
PT YOLANDA NAVARROS. TAKEN TO BED 4
[2018-09-26 23:01] VITALS: BP 169/121
--- NOTE | 2018-09-26 23:06 | NUR ---
DAUGHTER- RAUL TAYLOR
--- NOTE | 2018-09-26 23:11 | NUR ---
PT DAUGHTER AT BEDSIDE
--- NOTE | 2018-09-26 23:12 | NUR ---
Dr. Chapman examining patient.
[2018-09-26] MEDS ORDERED: cloNIDine 0.1 MG TAB PO ONE (23:20)
[2018-09-26] MEDS ORDERED: LORazepam 0.5 MG TAB PO ONE (23:20)
--- NOTE | 2018-09-26 23:27 | NUR ---
X-Ray at bedside.
[2018-09-26 23:42] LABS: BASOPHILS % (AUTO) 0.5 % (0.0-2.0); EOSINOPHILS # (AUTO) 0.1 K/uL (0-0.4); EOSINOPHILS % (AUTO) 2.1 % (0.0-4.0); HEMATOCRIT 40.3 % (36-48); HEMOGLOBIN 13.9 g/dL (12.0-16.0); LYMPHOCYTES # (AUTO) 1.4 K/uL (2.5-16.5); LYMPHOCYTES % (AUTO) 23.9 % (20.5-51.1); MEAN CORPUSCULAR HEMOGLOBIN 32 pg (27-31); MEAN CORPUSCULAR HGB CONC 35 g/dL (33-37); MEAN CORPUSCULAR VOLUME 93.3 fL (80-94); MONOCYTES # (AUTO) 0.6 K/uL (0.8-1.0); MONOCYTES % (AUTO) 9.6 % (1.7-9.3); NEUTROPHILS # (AUTO) 3.7 K/uL (1.8-7.7); NEUTROPHILS % (AUTO) 63.9 % (42.2-75.2); PLATELET COUNT (AUTO) 243 K/uL (140-450); RED BLOOD CELL COUNT(AUTO) 4.32 MIL/uL (4.20-5.40); RED CELL DISTRIBUTION WIDTH 12.6 % (11.6-13.7); WHITE BLOOD COUNT (AUTO) 5.8 K/uL (4.8-10.8)
[2018-09-26 23:52] LABS: ANION GAP 16.1 (8-16); CARBON DIOXIDE 25.3 mmol/L (21-32); CHLORIDE 104 mmol/L (98-107); CREATININE 0.9 mg/dL (0.6-1.3); GLUCOSE 116 mg/dL (74-106); POTASSIUM 3.4 mmol/L (3.5-5.1); SODIUM SERUM 142 mmol/L (136-145); UREA NITROGEN, BLOOD 21 mg/dL (7-18)
[2018-09-26 23:58] LABS: ALBUMIN 3.7 g/dL (3.4-5.0); ASPARTATE AMINOTRANSFERASE 30 U/L (15-37); TOTAL BILIRUBIN 0.3 mg/dL (0.0-1.0)
[2018-09-27] MEDS ORDERED: ASPIRIN 81 MG TAB.CHEW PO ONE (00:05)
--- NOTE | 2018-09-27 00:17 | NUR ---
SPOKE WITH RAUL TAYLOR, DAUGHTER, TO COMPLETE MEDICATION RECONCILIATION. PER DAUGHTER, SHE WILL COME TO THE HOSPITAL AND COMPLETE IN PERSON.
[2018-09-27 00:18] LABS: APPEARANCE,URINE CLEAR (CLEAR); BILIRUBIN,URINE NEGATIVE (NEGATIVE); BLOOD, URINE 1+ (NEGATIVE); COLOR,URINE YELLOW (YELLOW); LEUKOCYTE ESTERASE ,URINE 1+ (NEGATIVE); NITRITE, URINE NEGATIVE (NEGATIVE); UGLUCOSE NEGATIVE (NEGATIVE)
[2018-09-27 00:31] LABS: HYALINE CASTS, URINE 0-10 /LPF (None Seen)
[2018-09-27] MEDS ORDERED: NACL 0.9% 1,000 ML IV ONE (00:40)
--- NOTE | 2018-09-27 00:45 | NUR ---
PT ASLEEP. VISIBLE CHEST RISE AND FALL NOTED. VSS. WILL CONTINUE TO MONITOR.
[2018-09-27] MEDS ORDERED: ASPI-1718 PO (00:49)
[2018-09-27] MEDS ORDERED: ALPR0.5T2 PO (00:49)
[2018-09-27] MEDS ORDERED: ATEN50TA8 PO (00:49)
[2018-09-27] MEDS ORDERED: MELO15TA11 PO (00:49)
[2018-09-27] MEDS ORDERED: VITD1000 PO (00:54)
[2018-09-27] MEDS ORDERED: ACETAMINOPHEN 325 MG TAB PO PRN (00:55)
[2018-09-27] MEDS ORDERED: ALBUTEROL 0.083% 2.5 MG/3 ML NEBU INH PRN (00:55)
[2018-09-27] MEDS ORDERED: hydrALAZINE 20 MG/ML VIAL IVP PRN (00:55)
[2018-09-27] MEDS ORDERED: MORPHINE SULFATE 4 MG/ML SYR IVP PRN (00:55)
[2018-09-27] MEDS ORDERED: ONDANSETRON 4 MG/2 ML VIAL IVP PRN (00:55)
[2018-09-27] MEDS ORDERED: ALPRAZolam 0.5 MG TAB PO PRN (00:55)
[2018-09-27] MEDS ORDERED: NON-FORMULARY ITEM (Oxycodone HCl/Acetaminophen (Percocet 5-325 mg Tablet) 1 TAB) PO PRN (00:55)
[2018-09-27] MEDS ORDERED: cefTRIAXone 1,000 MG VIAL ONE (01:11)
[2018-09-27] MEDS ORDERED: POTASSIUM CHLORIDE 10 MEQ TABER PO ONE (01:30)
--- NOTE | 2018-09-27 01:35 | NUR ---
Patient will be admitted to care of Dr. Burkett. Admited to [facility]. Will go to room 110B. Belongings list completed. VSS at time of transport. Report to EVERT Caicedo. Transfer of care at this time.
[2018-09-27 01:45] VITALS: BP 153/94
--- NOTE | 2018-09-27 01:45 | NUR ---
PT BROUGHT UP TO FLOOR BY JAQUI ESCORTED BY SAM ASH AND HEBER LOYD . PT WAS WHEELED TO ROOM 110 AND THE WALKED WITH ASSISTANCE TO BED B. PT SKIN INTACT AND SHE IS AOX2 AND BREATHING ROOM AIR NO S/S OF RESPIRATORY DISTRESS. PT IS IN STABLE CONDITION. REPORT RECEIVED BY HEBER AT BEDSIDE.
--- NOTE | 2018-09-27 02:30 | NUR ---
PT IN BED ROCEPHIN AND BOLUS ARE FINISHED. PT WAS ASSISTED TO TOILET AND WAS ASSISTED TO BRUSH HER TEETH. PT HAS NO C/O OF PAIN ONLY WANTED TO USE TOILET AND HAVE WATER TO DRINK . ALL NEEDS ATTENDED BY STAFF. ALL FALLS PRECAUTIONS IN PLACE AT THIS TIME. PT DENIES PAIN. RADIATION ONCOLOGY NURSE LOGAN FROM [employer] [facility] . ALL REQUESTED NEEDS ATTNEDED BY STAFF AND BENJI SUMMERS IN REACH.
[2018-09-27 04:00] VITALS: BP 146/98
[2018-09-27] MEDS: SIMVASTATIN 20 MG TAB PO SCH (06:18)
--- NOTE | 2018-09-27 06:30 | NUR ---
PT IN BED NO S/S OF PAIN OR DISTRESS NOTED.GIVEN ZOCOR ORDERED AND V/S FOLLOWS T 97.5 P 78 R 18 B/P 146/98 02 98% ON ROOM AIR.
--- NOTE | 2018-09-27 07:30 | NUR ---
REPORT GIVEN TO ELLEN LOYD DAYSHIFT NURSE AT BEDSIDE FOR CONTINUITY OF CARE, PT IN STABLE CONDITION.
--- NOTE | 2018-09-27 07:35 | NUR ---
RECEIVED PT FROM SURFACE SUPERVISOR NURSE, JOHN, PT IS UP AND AMBULATING TO THE BATHROOM, AND WAS ASSISTED TO CHANGE TO A CLEAN AND DRY GOWN, IV LINE ON THE RT AC G. 22 ON SALINE LOCK, ON A FALL RISK, PRECAUTION ENFORCED, BED ALARM ACTIVATED, ON TELE MONITORING, NO SIGN OF DISTRESS NOTED. WILL CONTINUE TO MONITOR PT.
[2018-09-27 08:00] VITALS: BP 145/109
--- NOTE | 2018-09-27 08:00 | NUR ---
RECEIVED A CALL FROM PHARMACY, VERIFYING THE SIMVASTATIN AND ROCEPHIN OF PT. WILL INFORM DR. COREAS.
[2018-09-27] MEDS: ASPIRIN 81 MG TAB.CHEW PO SCH (08:06)
[2018-09-27] MEDS: ATENOLOL 50 MG TAB PO SCH (08:07)
--- NOTE | 2018-09-27 08:08 | NUR ---
PT IS AWAKE AND V/S CHECKED, BP IS 145/109, PULSE IS 76. TEMP. IS 97.5, OI2 SATURATION IS 96%, RESPIRATION IS EVEN AT 18/MIN. ORAL MEDICATIONS WERE GIVEN AND PT TOLERATED IT, PARAMETERS CHECKED. WILL MONITOR PT.
--- NOTE | 2018-09-27 08:15 | NUR ---
PATIENT HAS BEEN SCREENED AND CATEGORIZED MODERATE NUTRITION RISK. PATIENT WILL BE SEEN WITHIN 3-5 DAYS OF ADMISSION. 09/29/18RICHARD PA[address]
--- NOTE | 2018-09-27 11:54 | NUR ---
PT VERBALIZED A PAIN RATE OF 8/10 ON HER CHEST VIA REFRACTORY GRINDER OPERATOR ADEL #[id number] AND PAIN MEDICATION WAS GIVEN VIA IV PUSH. WILL RE-ASSESS PAIN.
[2018-09-27 12:00] VITALS: BP 150/103
--- NOTE | 2018-09-27 13:20 | NUR ---
PT REMOVED THE CASH MANAGEMENT OFFICER AND REFUSED TO HAVE IT PLACE ON HER.
[2018-09-27 16:00] VITALS: BP 155/107
--- NOTE | 2018-09-27 16:27 | NUR ---
UNABLE TO DO ECHO, PT IS AGITATED. NOTIFIED RN. HUGHES.
--- NOTE | 2018-09-27 16:57 | NUR ---
PT IS CALM LYING ON THE BED, ECHO IS BEING DONE, MEDICATION WAS GIVEN VIA IVPB AND NICOTINE PATCH WAS APPLIED TO RT UA. WILL MONITOR PT.
[2018-09-27] MEDS ORDERED: NICOTINE TRANSD SYS 14 MG/24 HR PATCH TD SCH (17:00)
--- NOTE | 2018-09-27 17:20 | NUR ---
LAP GRINDER WAS ATTACHED TO PT NOW.
--- NOTE | 2018-09-27 18:10 | NUR ---
PT REMOVED THE PREPARED FOODS ASSOCIATE AGAIN AND IS REFUSING TO HAVE IT ATTACHED ON HER.
--- NOTE | 2018-09-27 19:30 | NUR ---
RECEIVED PT FROM DAY SHIFT NURSE. PT IS UP AND AMBULATING AROUND UNIT, ASSISTED BY DAUGHTER. NO SOB OR ANY RESPIRATORY DISTRESS NOTED. IV LINE ON THE RT AC G. 22 ON SALINE LOCK, PATENT, INTACT, AND ASYMPTOMATIC. FALL PRECAUTION IN PLACE. BED ALARM ACTIVATED, ON TELE MONITORING BUT PT KEEP TAKING OFF, REMIND HER TO PUT IT BACK. NO SIGN OF DISTRESS NOTED. WILL CONTINUE TO MONITOR.
--- NOTE | 2018-09-27 19:30 | NUR ---
ENDORSED PT TO SHOE SALESMAN NURSEBARBARA FOR CONTINUITY OF CARE. PT IS STALKING TO DAUGHTER NOW. HEAD GAUGE UNIT OPERATOR WAS PLACED TO PT.
[2018-09-27 20:00] VITALS: BP 179/119
--- NOTE | 2018-09-27 20:29 | NUR ---
BP 179/119 NOTED. GIVEN HYDRALAZINE AND GIVEN HEPARIN DR ORDERED. PT TAKE TELE MONITOR OFF AGAIN. PUT IT BACK TO HER. WILL CONTINUE TO MONITOR.
--- NOTE | 2018-09-27 20:45 | NUR ---
PT CONFUSED AND TOOK OFF TELE MONITORING AND THROW IT TO TRASH CAN. REMIND PT TO HAVE TELEMONITOR AND PUT IT BACK ON HER.
--- NOTE | 2018-09-27 21:00 | NUR ---
PT KEEPS TAKING TELE MONITORING OFF. PUT IT BACK ON HER AGAIN AND REORIENT PT.
--- NOTE | 2018-09-27 21:30 | NUR ---
PT KEEP TAKING OFF TELEMONITORING. TALKED TO DR. GERBER IF IT CAN BE D/C BUT DR. GERBER IT SHOULD BE ON PT. PUT IT BACK TO PT. WILL CONTINUE TO MONITOR. Addendum: 09/27/18 at 2221 by Clarisse Mina RN VS CHECKED AGAIN, 149/95.
--- NOTE | 2018-09-27 22:22 | NUR ---
PT SLEEPING IN BED WITH TELE MONITORING. NO ACUTE DISTRESS NOTED. BED IN LOW POSITION, CALL LIGHT WITHIN REACH.
--- NOTE | 2018-09-27 22:50 | NUR ---
PT TAKE OFF TELE MONITORING AGAIN. PUT IT BACK TO PT.
--- NOTE | 2018-09-27 23:10 | NUR ---
PT TAKE OFF TELE MONITORING AGAIN. PUT IT BACK TO PT.
--- NOTE | 2018-09-27 23:25 | NUR ---
PT TAKE OFF TELE MONITORING AGAIN AND HIDE IT INTO PILLOW SHEET. PUT IT BACK TO PT.
--- NOTE | 2018-09-27 23:45 | NUR ---
PT TAKE OFF TELE MONITORING AGAIN. TRY TO PUT IT BACK BUT PT YELL AND REFUSE AGGRESSIVELY.
--- NOTE | 2018-09-27 23:50 | NUR ---
UNABLE TO PUT TELE MONITOR. CALL PT'S DAUGHTER BECAUSE PT KEEP YELLING. DAUGHTER DOES NOT WANT TELE MONITORING ON PT.
--- NOTE | 2018-09-27 23:55 | NUR ---
TALKED STACKER AND SORTER OPERATOR DR. GERBER AND EXPLAINED SITUATION IT IS IMPOSSIBLE TO PUT TELE MONITORING ON PT, INCLUDING PT DOES NOT COMPLAIN CHEST PAIN NOW AND 3 TIMES TROPONIN CAME IN NEGATIVE, AND DAUGHTER DOES NOT WANT PT ON TELE MONITORING. DR. GERBER STATE "YOU CAN TAKE IT OFF BUT I AM NOT GOING TO GIVE YOU D/C ORDER."
--- NOTE | 2018-09-28 00:15 | NUR ---
PT REFUSED VS CHECK STRONGLY. EXPLAINED BENEFIT AND RISK 3X BUT PT STILL YELLING AND REFUSED. PT REMOVED IV LINE. CANNULA INTACT. PT DOES NOT ALLOW TO EVEN TOUCH HER. UNABLE TO START IV LINE. WILL WAIT UNTIL PT CALM DOWN.
--- NOTE | 2018-09-28 02:51 | NUR ---
PT STILL YELLING AND AGGRESSIVE. PT DOES NOT ALLOW TO TOUCH. WILL WAIT UNTIL PT CALM DOWN.
[2018-09-28 04:00] VITALS: BP 175/124
--- NOTE | 2018-09-28 04:00 | NUR ---
VS CHECKED, BP 175/124 NOTED. ONLY IV PRN MEDS AVAILABLE AND NO IV LINE ON PT. TRY TO RESTART IV WITH ANOTHER RN DINA, PT REFUSED VERY AGGRESSIVELY. PAGED ONCALL TO GET PO MP MED
--- NOTE | 2018-09-28 04:30 | NUR ---
STILL WAITING FOR NURSE PRN 'S CALL FOR PO BP MED.
--- NOTE | 2018-09-28 04:45 | NUR ---
PAGED MECHANICAL PROJECT ENGINEER ONE MORE TIME.
--- NOTE | 2018-09-28 05:15 | NUR ---
RECEIVED CALL FROM DR. GERBER AND RECEIVED ORDER HYDRALAZINE 25MG PO ONCE FOR HYPERTENSION, TORB.
[2018-09-28] MEDS ORDERED: hydrALAZINE 25 MG TAB PO ONE (05:45)
[2018-09-28] MEDS: SIMVASTATIN 20 MG TAB PO SCH (06:21)
--- NOTE | 2018-09-28 06:21 | NUR ---
GIVEN ZOCOR AND HYDRALAZINE ORDERED. PT TOLERATED WELL. BED IN LOW POSITION. WILL CONTINUE TO MONITOR.
[2018-09-28] MEDS ORDERED: hydrALAZINE 25 MG TAB ONE (06:28)
--- NOTE | 2018-09-28 07:22 | NUR ---
ENDORSED PT TO DAY SHIFT NURSE. PT IN STABLE CONDITION.
--- NOTE | 2018-09-28 07:23 | NUR ---
RECEIVED BEDSIDE REPORT FROM TAILOR HELPER RN ANDREI. PT AWAKE, APPEAR IN NO RESPIRATORY DISTRESS, ON RA AN APPEAR IN NO PAIN. NO IV ACCESS OR TELE MONITOR PER TAILOR HELPER RN BECAUSE PT KEEPS TAKING IT OFF. SEVERAL IV INSERTION ATTEMPTED. ANDREI RN PAGED TEST DRILLER MD TO ORDER ROCEPHIN IM AND PRN HYDRALAZINE D/T ELEVATED BP
[2018-09-28 08:00] VITALS: BP 126/80
[2018-09-28] MEDS: ATENOLOL 50 MG TAB PO SCH (08:31)
[2018-09-28] MEDS: ASPIRIN 81 MG TAB.CHEW PO SCH (08:31)
--- NOTE | 2018-09-28 08:32 | NUR ---
BP 167/107, WILL GIVE AM BP MED AND RECHECK BP
[2018-09-28] MEDS ORDERED: NICOTINE TRANSD SYS 14 MG/24 HR PATCH TD SCH (09:00)
--- NOTE | 2018-09-28 09:26 | NUR ---
BP 126/80, HR 68. PT SEEMED AGITATED EARLIER. TRIED TO PUT BACK ON TELE MONITOR BUT PT TAKES IT OFF. NO WRISTBAND APPLIED BECAUSE PT ALSO TAKES THAT OFF. TOOL RENTAL TECHNICIAN TOOK PT AROUND UNIT WITH WHEELCHAIR TO CALM PT DOWN. PT STILL AGITATED. CALLED HER DAUGHTER TO SEE IF SHE CAN HELP, PT LAYING IN BED, WILL CONTINUE TO MONITOR
[2018-09-28] MEDS ORDERED: LISINOPRIL 20 MG TAB PO SCH (09:29)
[2018-09-28 10:40] LABS: BASOPHILS % (AUTO) 0.4 % (0.0-2.0); EOSINOPHILS # (AUTO) 0.1 K/uL (0-0.4); EOSINOPHILS % (AUTO) 1.7 % (0.0-4.0); HEMATOCRIT 41.1 % (36-48); HEMOGLOBIN 13.9 g/dL (12.0-16.0); LYMPHOCYTES # (AUTO) 1.7 K/uL (2.5-16.5); LYMPHOCYTES % (AUTO) 21.8 % (20.5-51.1); MEAN CORPUSCULAR HEMOGLOBIN 32 pg (27-31); MEAN CORPUSCULAR HGB CONC 34 g/dL (33-37); MEAN CORPUSCULAR VOLUME 93.9 fL (80-94); MONOCYTES # (AUTO) 0.6 K/uL (0.8-1.0); MONOCYTES % (AUTO) 7.8 % (1.7-9.3); NEUTROPHILS # (AUTO) 5.2 K/uL (1.8-7.7); NEUTROPHILS % (AUTO) 68.3 % (42.2-75.2); PLATELET COUNT (AUTO) 258 K/uL (140-450); RED BLOOD CELL COUNT(AUTO) 4.38 MIL/uL (4.20-5.40); RED CELL DISTRIBUTION WIDTH 12.7 % (11.6-13.7); WHITE BLOOD COUNT (AUTO) 7.7 K/uL (4.8-10.8)
[2018-09-28 10:52] LABS: ANION GAP 12.3 (8-16); CARBON DIOXIDE 28.3 mmol/L (21-32); CHLORIDE 104 mmol/L (98-107); CREATININE 0.8 mg/dL (0.6-1.3); GLUCOSE 123 mg/dL (74-106); POTASSIUM 3.6 mmol/L (3.5-5.1); SODIUM SERUM 141 mmol/L (136-145); UREA NITROGEN, BLOOD 18 mg/dL (7-18)
[2018-09-28 12:00] VITALS: BP 130/81
[2018-09-28] MEDS ORDERED: LISI-420 PO (12:48)
[2018-09-28] MEDS ORDERED: CEFT1SOL1 IV (13:07)
--- NOTE | 2018-09-28 14:36 | NUR ---
PT RESTING COMFORTABLY AT BEDSIDE. FAMILY MEMBER AT BEDSIDE.
--- NOTE | 2018-09-28 15:03 | NUR ---
Configuration Management Administrator Note: Slp Elizabeth called and spoke with Corine from [employer], arranged transportation, forklift picker time 8pm. Per Kiesha from [facility] , patient has been accepted and may go to room 12A, accepting physician is . I met with patient's daughter Rishi at bedside. I provided her with [facility]'s address and phone number.
--- NOTE | 2018-09-28 15:20 | NUR ---
Loss Prevention Representative Note: Earlier note for today: Per patient's daughter Rishi Brown , prior to hospital admission patient was living at home with her. Patient has been living with Rishi for 6 years. Rishi reported she cannot take care of patient at home anymore and requested snf placement assistance. She does not have a snf preference. She is fine with either short term snf placement or fpc snf placement. I explained to her I will let her know once I find an accepting snf. She verbalized understanding. I faxed inquiry to [facility]. [facility] is contracted with [facility] and has accepted fpc patients in the past. I called and spoke with [employer] Acacia from [facility] . Per Acacia, snf authorization for [facility] is [id number], authorization for transportation [id number].
[2018-09-28 16:00] VITALS: BP_SYST 130; BP_SYST 149; BP_DIAS 81; BP_DIAS 86
[2018-09-28] MEDS ORDERED: cefTRIAXone 1,000 MG in LIDOCAINE MPF 1% - 5 mL VIAL 2.1 ML IM SCH (16:00)
--- NOTE | 2018-09-28 19:32 | NUR ---
GAVE BED SIDE REPORT. MORGAN HERRERA
--- NOTE | 2018-09-28 19:33 | NUR ---
Patient's Plan of Care was discussed and reviewed with SABAS: NIKKIE. WILL CONTINUE TO MONITOR.
--- NOTE | 2018-09-28 19:33 | NUR ---
RECD. SITTING IN BED, AWAKE, A/OX3. NO IV LINE, ALREADY DRESSED READY FOR TRANSFER TO [facility]. DISCHARGE INSTRUCTIONS GIVEN TO PATIENT AND DAUGHTER, VERBALIZED UNDERSTANDING. DENIES PAIN 0/10.
[2018-09-28 20:17] VITALS: BP 149/98
--- NOTE | 2018-09-28 20:30 | NUR ---
STILL WAITING FOR [facility], PATIENT IS GETTING IMPATIENT. DAUGHTER STILL AT THE BEDSIDE.
--- NOTE | 2018-09-28 20:45 | NUR ---
PATIENT GOING AROUND THE ROOM, GETTING RESTLESS. DRAWER IN PLAIN LOOM WATCHES TO CONTROL AND REDIRECT PATIENT ROOM.
--- NOTE | 2018-09-28 21:00 | NUR ---
[facility] CAME, CHARGE NURSE TRUDY GAVE REPORT. METER MECHANIC ASSISTED PATIENT TO THE [facility].
--- NOTE | 2018-09-28 21:30 | NUR ---
TAKEN TO AMBULANCE PARKING AREA VIA GURNEY IN STABLE CONDITION ACCOMPANIED BY [facility] PERSONNEL FOR TRANSFER TO [facility].
[2018-09-29] MEDS ORDERED: LISINOPRIL 20 MG TAB PO SCH (09:00)
== END 2018-09-28 21:30 | DRG 463 ==
LOC: MED 22:55 → MTU 09-27 00:51
PROVIDERS: ADMIT Internal Medicine Pulmonary Disease; ATTEND Internal Medicine Pulmonary Disease
DX: N39.0 Urinary tract infection, site not specified (principal); G93.41 Metabolic encephalopathy; G30.9 Alzheimer's disease, unspecified; E78.5 Hyperlipidemia, unspecified; F02.80 Dementia in other diseases classified elsewhere, unspecified severity, without behavioral disturbance, psychotic disturbance, mood disturbance, and anxiety; F41.9 Anxiety disorder, unspecified; I10 Essential (primary) hypertension; J45.909 Unspecified asthma, uncomplicated; R07.89 Other chest pain; Z96.641 Presence of right artificial hip joint; Z79.899 Other long term (current) drug therapy; Z98.42 Cataract extraction status, left eye
CPT/HCPCS: 36415; 71045; 80048; 80053; 81001; 83605; 83735; 84484; 85025; 87040; 87081; 87086; 93005; 96365; 97116; 97161-GP; 99285; J0360; J0696; J1644; J2001; J2270; J7030; J7060